=== PATIENT | female | born 1990 | race Two or more races ===

== ENCOUNTER 2018-04-24 07:03 | Emergency (ER) | payer OTHER ==
[~2018-04-24] VITALS: Ht 165.1 cm; Wt 89.8 kg
[2018-04-24] MEDS ORDERED: KEPPRA1000 MG ORAL (07:11)
[2018-04-24] MEDS ORDERED: LORazepam Inj 2mg/ml 1ml IV ONE (07:15)
[2018-04-24] MEDS ORDERED: levETIRAcetam 500 MG in D5W 110 ML IV ONE (07:15)
--- NOTE | 2018-04-24 07:15 | Emergency Room Report ---
History of Present Illness General Source: Patient, EMS Present Illness HPI Patient presents via EMS after a tonic clonic seizure. She has a history of same. The last time she had a seizure was a week ago. She's been noncompliant with her medication which is Keppra 1000 mg twice a day. She bit her tongue this time. This was witnessed at home. Happen in bed in no trauma. Accucheck in field was 120. Patient denies fever, chills, nausea, vomiting, diarrhea, rashes, neck pain, headache, spine pain. Her last period was around the ninth or 10th. She denies dysuria. She used to drink alcohol but has stopped. Scheduled for MRI today. Allergies: Coded Allergies: IBUPROFEN (Verified Allergy, Unknown, 04/24/18) Patient History Past Medical History: see triage record Social History: Reports: drug use - THC; Denies: smoking, alcohol use - prior Social History Narrative student cosmetology Reviewed Nursing Documentation: PMH: Agreed; PSxH: Agreed Review of Systems All Other Systems: negative except mentioned in HPI Physical Exam Vital Signs Date Time Temp Pulse Resp B/P (MAP) Pulse Ox O2 Delivery O2 Flow Rate FiO2 04/24/18 07:07 98.2 73 18 98/63 99 Room Air 98.2 Sp02 EP Interpretation: reviewed, normal General Appearance: well appearing, no apparent distress, GCS 15 Head: normocephalic Eyes: bilateral eye normal inspection, bilateral eye PERRL, bilateral eye EOMI ENT: moist mucus membranes, other - Tongue macerations Neck: supple Respiratory: lungs clear, normal breath sounds Cardiovascular #1: regular rate, rhythm Cardiovascular #2: 2+ radial (R) Gastrointestinal: normal inspection, normal bowel sounds, non tender, no mass, non-distended Musculoskeletal: back normal, gait/station normal, normal range of motion Neurologic: alert, oriented x3, wind tunnel mechanic III-XII nml as tested, motor strength/tone normal, DTRs symmetric, sensory intact, cerebellar normal, normal gait, speech normal Psychiatric: mood/affect normal Skin: normal inspection, warm/dry Medical Decision Making Diagnostic Impression: Primary Impression: Seizure Additional Impressions: Non compliance with medical treatment Tongue macerations ER Course Patient with a history of seizures presents with seizure and history of noncompliance. Differential includes breakthrough seizure, noncompliance, electrolyte abnormality amongst others. Patient will be evaluated with chest x- ray to exclude aspiration. Patient will be placed on a environmental monitoring technician. Patient will receive IV hydration. Labs will be obtained. Patient be given Ativan and Keppra here. Based on history and exam, CT not indicated. CXR clear. Labs with normal CBC and CMP. Patient c/o VALDEZ. L sided. 03/06. Feels slightly nauseated. Thinks it might be from the medication. Neuro unchanged. Zofran and tylenol ordered. Patient going to have and MRI done at 9am. Stable to go for this and outpatient observation and treatment. Laboratory Tests Test 04/24/18 07:13 04/24/18 07:41 White Blood Count 8.2 K/UL (4.8-10.8) Red Blood Count 4.75 M/UL (4.20-5.40) Hemoglobin 14.4 G/DL (12.0-16.0) Hematocrit 42.0 % (37.0-47.0) Mean Corpuscular Volume 88 FL (80-99) Mean Corpuscular Hemoglobin 30.2 PG (27.0-31.0) Mean Corpuscular Hemoglobin Concent 34.3 G/DL (32.0-36.0) Red Cell Distribution Width 11.2 % (11.6-14.8) L Platelet Count 158 K/UL (150-450) Mean Platelet Volume 7.9 FL (6.5-10.1) Neutrophils (%) (Auto) 70.0 % (45.0-75.0) Lymphocytes (%) (Auto) 21.1 % (20.0-45.0) Monocytes (%) (Auto) 3.7 % (1.0-10.0) Eosinophils (%) (Auto) 4.0 % (0.0-3.0) H Basophils (%) (Auto) 1.2 % (0.0-2.0) Sodium Level 139 MMOL/L (136-145) Potassium Level 4.1 MMOL/L (3.5-5.1) Chloride Level 104 MMOL/L (98-107) Carbon Dioxide Level 26 MMOL/L (21-32) Anion Gap 9 mmol/L (5-15) Blood Urea Nitrogen 10 mg/dL (7-18) Creatinine 0.8 MG/DL (0.55-1.30) Estimate Glomerular Filtration Rate > 60 mL/min (>60) Glucose Level 115 MG/DL (74-106) H Calcium Level 8.5 MG/DL (8.5-10.1) Total Bilirubin 0.4 MG/DL (0.2-1.0) Aspartate Amino Transferase (AST) 17 U/L (15-37) Alanine Aminotransferase (ALT) 27 U/L (12-78) Alkaline Phosphatase 83 U/L (46-116) Total Protein 6.9 G/DL (6.4-8.2) Albumin 3.8 G/DL (3.4-5.0) Globulin 3.1 g/dL Albumin/Globulin Ratio 1.2 (1.0-2.7) Salicylates Level 2.6 ug/mL (2.8-20) L Acetaminophen Level < 2 MCG/ML (10-30) L Serum Alcohol < 3 mg/dL Urine Color Pale yellow Urine Appearance Clear Urine pH 6 (4.5-8.0) Urine Specific [place] 1.015 (1.005-1.035) Urine Protein 2+ (NEGATIVE) H Urine Glucose (UA) Negative (NEGATIVE) Urine Ketones Negative (NEGATIVE) Urine Blood 2+ (NEGATIVE) H Urine Nitrite Negative (NEGATIVE) Urine Bilirubin Negative (NEGATIVE) Urine Urobilinogen Normal MG/DL (0.0-1.0) Urine Leukocyte Esterase Negative (NEGATIVE) Urine RBC 2-4 /HPF (0 - 2) H Urine WBC 0 /HPF (0 - 2) Urine Squamous Epithelial Cells Few /LPF (NONE/OCC) Urine Bacteria None /HPF (NONE) Urine HCG, Qualitative Pending Urine Opiates Screen Negative (NEGATIVE) Urine Barbiturates Screen Negative (NEGATIVE) Phencyclidine (PCP) Screen Negative (NEGATIVE) Urine Amphetamines Screen Negative (NEGATIVE) Urine Benzodiazepines Screen Negative (NEGATIVE) Urine Cocaine Screen Negative (NEGATIVE) Urine Marijuana (THC) Screen Positive (NEGATIVE) H Rhythm Strip Diag. Results EP Interpretation: yes Rhythm: NSR, no PVC's, no ectopy Chest X-Ray Diagnostic Results Chest X-Ray Diagnostic Results : Chest X-Ray Ordered: Yes # of Views/Limited/Complete: 1 View Indication: Other EP Interpretation: Yes Interpretation: no consolidation, no effusion, no pneumothorax Impression: No acute disease Electronically Signed by: Electronically signed by Neymar Regalado MD Last Vital Signs Date Time Temp Pulse Resp B/P (MAP) Pulse Ox O2 Delivery O2 Flow Rate FiO2 04/24/18 08:42 98.0 74 24 120/72 100 Room Air 98.1 Status: improved Disposition: HOME, SELF-CARE Condition: Improved Neymar Regalado M.D. Apr 24, 2018 07:15
[2018-04-24 07:20] VITALS: BP 108/52
[2018-04-24 07:39] LABS: ANION GAP 9 mmol/L (5-15); BLOOD UREA NITROGEN 10 mg/dL (7-18); CALCIUM 8.5 MG/DL (8.5-10.1); CARBON DIOXIDE 26 MMOL/L (21-32); CHLORIDE 104 MMOL/L (98-107); CREATININE 0.8 MG/DL (0.55-1.30); POTASSIUM 4.1 MMOL/L (3.5-5.1); SODIUM 139 MMOL/L (136-145)
[2018-04-24 07:42] LABS: BASOPHILS % (AUTO) 1.2 % (0.0-2.0); HEMOGLOBIN 14.4 G/DL (12.0-16.0); LYMPHOCYTES % (AUTO) 21.1 % (20.0-45.0); MEAN CORPUSCULAR VOLUME 88 FL (80-99); MONOCYTES % (AUTO) 3.7 % (1.0-10.0); PLATELET COUNT 158 K/UL (150-450); RED BLOOD COUNT 4.75 M/UL (4.20-5.40); RED CELL DISTRIBUTION WIDTH 11.2 % (11.6-14.8); WHITE BLOOD COUNT 8.2 K/UL (4.8-10.8)
[2018-04-24 07:45] LABS: ALANINE AMINOTRANSFERASE 27 U/L (12-78); ALBUMIN 3.8 G/DL (3.4-5.0); ALBUMIN/GLOBULIN RATIO 1.2 (1.0-2.7); ALKALINE PHOSPHATASE 83 U/L (46-116); ASPARTATE AMINO TRANSFERASE 17 U/L (15-37); BILIRUBIN,TOTAL 0.4 MG/DL (0.2-1.0)
[2018-04-24 07:54] LABS: APPEARANCE,URINE CLEAR; BILIRUBIN, URINE NEGATIVE (NEGATIVE); COLOR,URINE PALE YELLOW; GLUCOSE, URINE (UA) NEGATIVE (NEGATIVE); KETONES,URINE NEGATIVE (NEGATIVE); LEUKOCYTE ESTERASE ,URINE NEGATIVE (NEGATIVE); NITRITE,URINE NEGATIVE (NEGATIVE); PH,URINE 6 (4.5-8.0); PROTEIN,URINE 2+ (NEGATIVE); UROBILINOGEN,URINE NORMAL MG/DL (0.0-1.0)
--- NOTE | 2018-04-24 08:37 | Diagnostic Imaging Report ---
Indication: Shortness of breath Technique: One view of the chest Comparison: none Findings: Lungs and pleural spaces are clear. Heart size is normal Impression: No acute process
[2018-04-24 08:42] VITALS: BP 120/72
== END 2018-04-24 08:44 | disposition home or self-care (01) ==
LOC: EDBD 07:03 → EMR 07:15
DX: G40.909 Epilepsy, unspecified, not intractable, without status epilepticus (principal); Z91.14 Patient's other noncompliance with medication regimen; S00.502A Unspecified superficial injury of oral cavity, initial encounter; X58.XXXA Exposure to other specified factors, initial encounter; Y93.9 Activity, unspecified; Y92.013 Bedroom of single-family (private) house as the place of occurrence of the external cause
CPT/HCPCS: 36415; 71045; 80053; 80299; 80307; 80329; 81003; 81025; 85025; 96361; 96374; 96375; 99285; J1953; J2405

== ENCOUNTER 2018-08-02 08:18 | Emergency (ER) | payer OTHER ==
[~2018-08-02] VITALS: Ht 165.1 cm; Wt 81.6 kg
[~2018-08-02 08:18] MED LIST: KEPPRA1000 MG ORAL
--- NOTE | 2018-08-02 08:26 | Emergency Room Report ---
History of Present Illness General Chief Complaint: Seizure Source: Patient Present Illness HPI Tri is a pleasant healthy 28-year-old female with history of seizure disorder for the past 3 years. She takes Keppra 1000 mg twice a day. She does not remember taking her dose last night. She states that she has been in good health. She had a generalized tonic-clonic seizure witnessed by boyfriend according to EMS report. She's followed by neurologist. She has MRI of the brain scheduled within the next few weeks. Denies any trauma. She may have bit her tongue. She does smoke tobacco. She does drink alcohol. No use of recreational drugs. She is not currently . She is currently a student at [employer]. Allergies: Coded Allergies: IBUPROFEN (Verified Allergy, Unknown, 04/24/18) Patient History Past Medical History: other - seizure Past Surgical History: other - review per triage note Pertinent Family History: other - not pertinent Social History: Reports: smoking, alcohol use; Denies: drug use Now: No Reviewed Nursing Documentation: PMH: Agreed; PSxH: Agreed Nursing Documentation-PMH Past Medical History: No History, Except For Hx Seizures: Yes Review of Systems Constitutional: Denies: fever, malaise Cardiovascular: Denies: chest pain Musculoskeletal: Denies: back pain Neurological: Denies: headache All Other Systems: negative except mentioned in HPI Physical Exam Vital Signs Date Time Temp Pulse Resp B/P (MAP) Pulse Ox O2 Delivery O2 Flow Rate FiO2 08/02/18 08:17 98.1 90 16 120/77 98 Room Air Sp02 EP Interpretation: reviewed, normal General Appearance: no apparent distress, alert, GCS 15, non-toxic Head: normocephalic, atraumatic Eyes: bilateral eye normal inspection, bilateral eye PERRL ENT: hearing grossly normal, normal pharynx, no angioedema, normal voice Neck: full range of motion, supple/symm/no masses Respiratory: chest non-tender, lungs clear, normal breath sounds, speaking full sentences Cardiovascular #1: regular rate, rhythm, no edema Gastrointestinal: normal bowel sounds, non tender, soft, non-distended, no guarding, no rebound Rectal: deferred Genitourinary: normal inspection, no CVA tenderness Musculoskeletal: back normal, gait/station normal, normal range of motion, non- tender, calf tenderness Neurologic: alert, oriented x3, responsive, motor strength/tone normal, sensory intact, normal gait, speech normal Psychiatric: judgement/insight normal, memory normal, mood/affect normal, no suicidal/homicidal ideation Skin: normal color, no rash, warm/dry, well hydrated Medical Decision Making Diagnostic Impression: Primary Impression: Seizure Additional Impression: Seizure disorder ER Course Tri presents with seizure likely as a result of missing a dose of medication. No evidence of illness leading to the seizure. No trauma as a result of seizure. Tri received IV lorazapam and IV keppra load. CBC BMP WNL Last Vital Signs Date Time Temp Pulse Resp B/P (MAP) Pulse Ox O2 Delivery O2 Flow Rate FiO2 08/02/18 08:17 98.1 90 16 120/77 98 Room Air Status: improved Disposition: HOME, SELF-CARE Vandana Berumen MD Aug 02, 2018 08:26
[2018-08-02] MEDS ORDERED: LORazepam Inj 2mg/ml 1ml IV ONE (08:30)
[2018-08-02] MEDS ORDERED: levETIRAcetam 1,000mg/NS100ml 100 ML IVPB ONE ×2 (08:30→08:51)
[2018-08-02] MEDS ORDERED: LORazepam Inj 2mg/ml 1ml ONE (08:51)
[2018-08-02 08:59] VITALS: BP 103/60
[2018-08-02 09:02] LABS: ANION GAP 9 mmol/L (5-15); BASOPHILS % (AUTO) 1.3 % (0.0-2.0); BLOOD UREA NITROGEN 9 mg/dL (7-18); CALCIUM 8.5 MG/DL (8.5-10.1); CARBON DIOXIDE 27 MMOL/L (21-32); CHLORIDE 103 MMOL/L (98-107); CREATININE 0.8 MG/DL (0.55-1.30); EOSINOPHILS % (AUTO) 3.2 % (0.0-3.0); HEMATOCRIT 43.1 % (37.0-47.0); HEMOGLOBIN 14.9 G/DL (12.0-16.0); LYMPHOCYTES % (AUTO) 20.6 % (20.0-45.0); MEAN CORPUSCULAR VOLUME 88 FL (80-99); MONOCYTES % (AUTO) 3.8 % (1.0-10.0); NEUTROPHILS % (AUTO) 71.1 % (45.0-75.0); PLATELET COUNT 184 K/UL (150-450); POTASSIUM 4.2 MMOL/L (3.5-5.1); RED BLOOD COUNT 4.88 M/UL (4.20-5.40); RED CELL DISTRIBUTION WIDTH 11.4 % (11.6-14.8); SODIUM 138 MMOL/L (136-145); WHITE BLOOD COUNT 8.1 K/UL (4.8-10.8)
[2018-08-02 09:07] LABS: ALANINE AMINOTRANSFERASE 25 U/L (12-78); ALBUMIN 3.8 G/DL (3.4-5.0); ALBUMIN/GLOBULIN RATIO 0.9 (1.0-2.7); ALKALINE PHOSPHATASE 78 U/L (46-116); ASPARTATE AMINO TRANSFERASE 17 U/L (15-37); BILIRUBIN,TOTAL 0.5 MG/DL (0.2-1.0)
[2018-08-02 11:40] VITALS: BP 113/65
== END 2018-08-02 11:40 | disposition home or self-care (01) ==
LOC: EDBD 08:18 → EMR 08:34
DX: G40.409 Other generalized epilepsy and epileptic syndromes, not intractable, without status epilepticus (principal); Z88.6 Allergy status to analgesic agent
CPT/HCPCS: 36415; 80053; 85025; 96374; 96375; 99284; J1953; J2405